=== PATIENT | female | born 1975 | race Caucasian/White ===

== ENCOUNTER 2020-01-26 08:14 | Day surgery (SDC) | payer BC, OTHER ==
[2020-01-26 08:23] LABS: Basophils % 0.7 % (0-1.3); Hematocrit 44.5 % (36.0-45.0); Lymphocytes % 28.9 % (15.3-44.8); MPV 7.9 fL (7.6-11.3); RBC Red Blood Cell Count 4.76 M/uL (3.86-4.86)
[2020-01-26] MEDS ORDERED: GENTAMICIN SULF 80 MG/2ML INJ ONE (08:30)
[2020-01-26] MEDS ORDERED: Ringers Lactate 1,000 ML IV ONE ×3 (08:30→12:23)
[2020-01-26] MEDS ORDERED: CEFAZOLIN SODIUM 1 GM/VIAL ONE (08:30)
[2020-01-26] MEDS ORDERED: BACITRACIN 50000 UNIT VIAL ONE (08:30)
[2020-01-26] MEDS ORDERED: NS 0.9% VIAL 50 ML ONE (08:30)
[2020-01-26] MEDS ORDERED: LIDOCAINE 1% W/EPI 1:100,000 MDV 50 ML VIAL ONE (08:31)
[2020-01-26] MEDS ORDERED: SCOPOLAMINE HYDROBROMIDE PATCH TD ONE ×2 (08:43→09:05)
[2020-01-26] MEDS ORDERED: CEFAZOLIN/SWI 1gm 1 GM/10 ML SYR ONE (08:43)
[2020-01-26] MEDS ORDERED: FENTANYL CITR 100 MCG/2 ML ONE ×2 (08:54→12:55)
[2020-01-26] MEDS ORDERED: propofoL 200 MG/20 ML VIAL IV ONE (08:54)
[2020-01-26] MEDS ORDERED: MIDAZOLAM HCL 2 MG/2 ML INJ ONE (08:54)
[2020-01-26] MEDS ORDERED: dexAMETHasone 10 MG/ML VIAL ONE (08:54)
[2020-01-26] MEDS ORDERED: LIDOCAINE 2% MPF 5 ML VIAL ONE (08:55)
[2020-01-26] MEDS ORDERED: ROCURONIUM 50 MG/5 ML VIAL IV ONE ×2 (08:55→10:56)
[2020-01-26] MEDS ORDERED: ONDANSETRON 4 MG/2 ML VIAL ONE (08:57)
[2020-01-26] MEDS ORDERED: FENTANYL CITR 250 MCG/5 ML ONE (09:53)
[2020-01-26] MEDS ORDERED: KETOROLAC 30 MG/ML INJ ONE (13:22)
[2020-01-26] MEDS: HYDROMORPHONE HCL 1 MG/ML INJ ONE ×2 (14:06→14:15)
--- NOTE | 2020-01-26 14:36 | OP ---
Surgeon: Pepe Chambers MD Medical Typist: Valentin. Preoperative Diagnosis: Breast enlargement and descent. Postoperative Diagnosis: Breast enlargement and descent. Procedure Performed: Lift with minimal reduction. Anesthesia: General. Description Of Procedure: After satisfactory induction of general anesthesia the chest was prepped with DuraPrep, dry sterile drapes applied in the usual manner. A 45 mm template was used to outline the areolas and transverse curvilinear incision was made. Intervening skin was de-epithelialized with dermabrader or EpiCut. Then electrocautery was used to dissect down to the transverse lesion. The flap was elevated to the sternum, clavicle, anterior axillary line, then the inferior incision was also made. The intervening skin was then formed in a cone after resection of excess tissue. Conization performed with 2-0 PDS suture. Straps were elevated at 12 o'clock, 1:30, and 3 o'clock positions on the right side, mirror image in left. The straps were woven in and out the pectoralis muscle back to base of the cone and tied to themselves with 2 PDS suture. This was done from 12 o'clock and 1:30 straps. The 3 o'clock strap was sewn over the sternum at 3 o'clock position with 2 Ethibond. The mirror image closure was done on the left side. The wounds were temporary jesus shut. Dog ears were marked out and asymmetry was marked out. Wounds were opened up and irrigated with antibiotic solution and then 10 CESAR brought out the axilla sewn in place with 2 silk and the wound was closed in layers after dog-ears resected and closure consisted of 3-0 PDS running subcuticular tied from lateral medial, medial lateral tied in the vertical meridian of the breast. The patient was then sat up. Site for new nipple complex was marked out, tissue cored out, nipples delevered and sewn with 4 o pds subcuticular. Dressings consisted of tincture of benzoin, Steri-Strips, 5 x 5s, fluffs, and Benedicto wrap. Patient tolerated the procedure well and returned to recovery. GLENNY/AFTAB Voice ID: [id number] Report ID: [id number] [facility]
[2020-01-26] MEDS ORDERED: CODEINE 30MG/APAP 300MG TAB ONE (15:10)
[2020-01-26 16:01] VITALS: BP 101/62; TEMP 98.9; O2SAT 100
== END 2020-01-26 16:05 | disposition home or self-care (01) ==
LOC: OR 08:14
PROVIDERS: ATTEND Specialist
PROC: 0H0V0ZZ Alteration of Bilateral Breast, Open Approach (ICD-10-PCS; principal; 2020-01-26 09:00)
DX: N64.81 Ptosis of breast (principal); N62 Hypertrophy of breast
CPT/HCPCS: 85025; 36415; 81025; 88305; 19316; J2704; J1580; J2250; J3010 ×3; J1100; J1170; J0690 ×2; J7120 ×3; J2405